=== PATIENT | male | born 1970 | race Caucasian/White ===

== ENCOUNTER 2017-04-11 08:59 | Emergency (ER) | payer OTHER ==
[~2017-04-11] VITALS: Ht 167.6 cm; Wt 89.8 kg
[~2017-04-11 08:59] MED LIST: FLONS; PROAIR HFA0.09 MG/A1 INH; QVAR0.08 MG/Ac IH; SINGULAIR10 MG PO
[2017-04-11 11:18] VITALS: BP 114/78
== END 2017-04-11 11:18 | disposition home or self-care (01) ==
LOC: ED 08:59
DX: J45.901 Unspecified asthma with (acute) exacerbation (principal); Z79.51 Long term (current) use of inhaled steroids
CPT/HCPCS: J1100; J7030; J7620; Q0092

== ENCOUNTER 2017-07-29 09:40 | Emergency (ER) | payer OTHER ==
[~2017-07-29] VITALS: Ht 170.2 cm; Wt 88.7 kg
[2017-07-29 12:04] VITALS: BP 138/88
== END 2017-07-29 12:05 | disposition home or self-care (01) ==
LOC: ED 09:40
DX: J45.901 Unspecified asthma with (acute) exacerbation (principal); Z79.899 Other long term (current) drug therapy
CPT/HCPCS: J2930; J7613; J7644

== ENCOUNTER 2018-03-03 08:55 | Emergency (ER) | payer OTHER ==
[~2018-03-03] VITALS: Ht 167.6 cm; Wt 88.9 kg
[2018-03-03 08:57] VITALS: Ht 167.6 cm; Wt 88.9 kg
[2018-03-03 09:30] LABS: BASOPHIL % 0.4 % (0-2); PLATELET COUNT 244 x10^3mcL (130-400); RED CELL DISTRIBUTION WIDTH 14.5 % (11.5-14.5)
[2018-03-03 09:55] LABS: CALCIUM 9.3 mg/dL (8.5-10.1); CHLORIDE SERUM 103 mmol/L (98-107); GFR1 > 60 mL/min; GLUCOSE SERUM 130 mg/dL (74-106); POTASSIUM SERUM 4.8 mmol/L (3.5-5.1); SODIUM SERUM 141 mmol/L (136-145)
[2018-03-03 09:58] LABS: ALBUMIN 3.6 g/dL (3.4-5.0); ALKALINE PHOSPHATASE 60 U/L (46-116); ALT/SGPT 22 U/L (16-63); AST/SGOT 12 U/L (15-37); BILIRUBIN TOTAL 0.24 mg/dL (0.20-1.00); TOTAL PROTEIN, SERUM 7.2 g/dL (6.4-8.2)
[2018-03-03 11:49] VITALS: BP 117/75
== END 2018-03-03 11:49 | disposition home or self-care (01) ==
LOC: ED 08:55
PROVIDERS: Emergency Medicine
DX: J45.901 Unspecified asthma with (acute) exacerbation (principal)
CPT/HCPCS: 83880; 94150; J2930; J3475; J7030; J7613; Q0092

== ENCOUNTER → 2018-05-20 | Outpatient (CLI) | payer OTHER ==
[2018-05-20 09:53] LABS: BASOPHIL % 0.4 % (0-2); PLATELET COUNT 242 x10^3mcL (130-400)
[2018-05-20 10:35] LABS: ALBUMIN 3.6 g/dL (3.4-5.0); ALKALINE PHOSPHATASE 73 U/L (46-116); ALT/SGPT 30 U/L (16-63); AST/SGOT 18 U/L (15-37); BILIRUBIN TOTAL 0.3 mg/dL (0.20-1.00); CALCIUM 8.5 mg/dL (8.5-10.1); CARBON DIOXIDE 30.6 mmol/L (21-32); CHLORIDE SERUM 104 mmol/L (98-107); GFR1 > 60 mL/min; GLUCOSE SERUM 94 mg/dL (74-106); HDL CHOLESTEROL 44 mg/dL (40-60); POTASSIUM SERUM 3.6 mmol/L (3.5-5.1); SODIUM SERUM 141 mmol/L (136-145); TOTAL PROTEIN, SERUM 7.1 g/dL (6.4-8.2); TRIGLYCERIDES 148 mg/dL (<150)
[2018-05-20 10:44] LABS: CHOLESTEROL 238 mg/dL (<200); CHOLESTEROL/HDL RATIO 5.4; T4(THYROXINE) 4.1 ug/dL (4.7-13.3)
== END | disposition home or self-care (01) ==
LOC: LB 09:02
PROVIDERS: Pediatrics
DX: Z00.00 Encounter for general adult medical examination without abnormal findings (principal); J45.40 Moderate persistent asthma, uncomplicated; E66.9 Obesity, unspecified; Z68.30 Body mass index [BMI] 30.0-30.9, adult
CPT/HCPCS: 84439

== ENCOUNTER → 2018-06-08 | Outpatient (CLI) | payer OTHER ==
[2018-06-08 11:12] LABS: FREE T4 0.73 ng/dL (0.76-1.46)
== END | disposition home or self-care (01) ==
LOC: LB 10:25
PROVIDERS: Pediatrics
DX: R94.6 Abnormal results of thyroid function studies (principal)
CPT/HCPCS: 84439

== ENCOUNTER 2018-07-28 13:04 | Emergency (ER) | payer OTHER ==
[~2018-07-28] VITALS: Ht 167.6 cm; Wt 91.6 kg
[2018-07-28 13:10] VITALS: Ht 167.6 cm; Wt 91.6 kg
[2018-07-28 14:34] LABS: CALCIUM 8.1 mg/dL (8.5-10.1); CARBON DIOXIDE 27.7 mmol/L (21-32); CHLORIDE SERUM 111 mmol/L (98-107); GFR1 > 60 mL/min; GLUCOSE SERUM 109 mg/dL (74-106); POTASSIUM SERUM 3.7 mmol/L (3.5-5.1); SODIUM SERUM 147 mmol/L (136-145)
[2018-07-28 14:36] LABS: BASOPHIL % 0.6 % (0-2); PLATELET COUNT 212 x10^3mcL (130-400); RED CELL DISTRIBUTION WIDTH 14.1 % (11.5-14.5)
[2018-07-28 14:38] LABS: ALBUMIN 3.4 g/dL (3.4-5.0); ALKALINE PHOSPHATASE 60 U/L (46-116); ALT/SGPT 23 U/L (16-63); AST/SGOT 19 U/L (15-37); BILIRUBIN TOTAL 0.21 mg/dL (0.20-1.00); CHOLESTEROL 181 mg/dL (<200); LIPASE 130 IU/L (73-393); TOTAL PROTEIN, SERUM 6.5 g/dL (6.4-8.2); TRIGLYCERIDES 167 mg/dL (<150)
[2018-07-28 14:40] LABS: HDL CHOLESTEROL 30 mg/dL (40-60)
[2018-07-28 15:43] LABS: FREE T4 0.76 ng/dL (0.76-1.46); FREE THYROXINE INDEX 1.6 ug/dL (1.4-4.5); T4(THYROXINE) 4.7 ug/dL (4.7-13.3)
[2018-07-28 15:52] VITALS: BP 130/84
[2018-07-28 15:56] LABS: PHOSPHOROUS 2.7 mg/dL (2.5-4.9)
[2018-07-28 16:07] LABS: T3 TOTAL 1.22 ng/mL
== END 2018-07-28 15:52 | disposition left against medical advice (07) ==
LOC: ED 13:04
PROVIDERS: Internal Medicine; Specialist
DX: T18.128A Food in esophagus causing other injury, initial encounter (principal); J45.909 Unspecified asthma, uncomplicated; X58.XXXA Exposure to other specified factors, initial encounter; Y93.89 Activity, other specified; Y92.89 Other specified places as the place of occurrence of the external cause; Y99.8 Other external cause status
CPT/HCPCS: 83880; 84439; J1610; J2405; J7030; Q0092; Q0162

== ENCOUNTER 2018-08-15 02:59 | Emergency (ER) | payer OTHER ==
[~2018-08-15] VITALS: Ht 170.2 cm; Wt 94.9 kg
[2018-08-15 07:26] VITALS: BP 111/87
== END 2018-08-15 07:25 | disposition home or self-care (01) ==
LOC: ED 02:59
DX: J45.901 Unspecified asthma with (acute) exacerbation (principal)
CPT/HCPCS: J7512; J7620

== ENCOUNTER 2018-09-19 20:54 | Emergency (ER) | payer OTHER ==
[2018-09-19 23:22] VITALS: BP 135/81
== END 2018-09-19 23:22 | disposition home or self-care (01) ==
LOC: ED 20:54
DX: J20.9 Acute bronchitis, unspecified (principal); J45.901 Unspecified asthma with (acute) exacerbation
CPT/HCPCS: J7613; J7620; J7644

== ENCOUNTER 2018-09-20 09:06 | Emergency (ER) | payer OTHER ==
[~2018-09-20] VITALS: Ht 170.2 cm; Wt 94.8 kg
[2018-09-20 09:08] VITALS: Ht 170.2 cm; Wt 94.8 kg
[2018-09-20 10:24] LABS: CALCIUM 8.8 mg/dL (8.5-10.1); CARBON DIOXIDE 24.5 mmol/L (21-32); CHLORIDE SERUM 103 mmol/L (98-107); CREATININE SERUM 0.9 mg/dL (0.7-1.3); GFR1 > 60 mL/min; GLUCOSE SERUM 112 mg/dL (74-106); POTASSIUM SERUM 3.5 mmol/L (3.5-5.1); SODIUM SERUM 138 mmol/L (136-145)
[2018-09-20 10:29] LABS: ALBUMIN 3.4 g/dL (3.4-5.0); ALKALINE PHOSPHATASE 70 U/L (46-116); ALT/SGPT 25 U/L (16-63); AST/SGOT 13 U/L (15-37); BILIRUBIN TOTAL 0.1 mg/dL (0.20-1.00); TOTAL PROTEIN, SERUM 7.4 g/dL (6.4-8.2)
[2018-09-20 11:06] LABS: PLATELET COUNT 255 x10^3mcL (130-400); RED CELL DISTRIBUTION WIDTH 13.3 % (11.5-14.5)
[2018-09-20 11:30] LABS: ATYPICAL LYMPH 1 %; BAND NEUTROPHIL 3 % (0-10); BASOPHIL 0 % (0-2); MONOCYTE 7 % (0-7); SEGMENTED NEUTROPHILS 86 % (37-75); rbc morphology (normal/abnorm) ABNORMAL (NORMAL)
[2018-09-20 11:31] LABS: PLATELET MORPHOLOGY PLATELETS NORMAL
[2018-09-20 12:09] VITALS: BP 123/74
== END 2018-09-20 12:09 | disposition home or self-care (01) ==
LOC: ED 09:06
PROVIDERS: Emergency Medicine
DX: J45.901 Unspecified asthma with (acute) exacerbation (principal)
CPT/HCPCS: 83880; 94150; J2930; J3475; J7030; J7040; J7613; J7644

== ENCOUNTER 2019-08-16 02:39 | Inpatient (IN) | payer OTHER ==
[~2019-08-16] VITALS: Ht 167.6 cm; Wt 99.4 kg
[2019-08-16 02:45] VITALS: Ht 167.6 cm; Wt 99.4 kg
--- NOTE | 2019-08-16 02:49 | NUR ---
PT PRESENTS TO ED WITH [facility] FROM HOME FOR C/O SOB/ASTHMA EXACERBATION. PT STATES THAT HE JUST RETURNED THIS EVENING FROM [facility] [employer] [facility] AND HAS FELT INCREASINGLY SOB. PT STATES THAT HE HAS BEEN INTUBATED FOR ASTHMA EXACERBATIONS 7 TIMES IN THE PAST. PT STATES HE HASA LOT OF SINUS PRESSURE AND A CONGESTED COUGH WITH YELLOW PHLEGM. PER PT WHEN HE COUGHS HIS HEAD PAIN IS REALLY BAD IN THE FRONTAL LOBE. PT IS SPEAKING IN CLEAR AND FULL SENTENCES AND HAS AUDIBLE CONGESTED COUGH. PT ALSO HAS EXPIRATORY WHEEZING IN BL BASES WELL UPPER LOBES OF BOTH FRONT AND BACK. PT CURRENTLY HAS BREATHING TX IN PLACE FROM [facility]. PT SATURATION AT100% WITH TX IN PLACE. AWAITING MSE AT THIS TIME. PT CONNECTED TO PULSE OX MONITORS. PT CURTAIN OPEN TO THE NURSES STATION AT THIS TIME
--- NOTE | 2019-08-16 02:53 | NUR ---
PER [facility] PT WAS SATURATING AT 96% ON RA ON ARRIVAL
[2019-08-16 03:32] LABS: BASOPHIL % 0.3 % (0-2); PLATELET COUNT 226 x10^3mcL (130-400); RED CELL DISTRIBUTION WIDTH 14.2 % (11.5-14.5)
[2019-08-16 03:59] LABS: CALCIUM 8.3 mg/dL (8.5-10.1); CARBON DIOXIDE 29.9 mmol/L (21-32); CHLORIDE SERUM 104 mmol/L (98-107); CREATININE SERUM 1.1 mg/dL (0.7-1.3); GFR1 > 60 mL/min; GLUCOSE SERUM 106 mg/dL (74-106); POTASSIUM SERUM 4.1 mmol/L (3.5-5.1); SODIUM SERUM 143 mmol/L (136-145)
[2019-08-16 04:03] LABS: ALBUMIN 3.5 g/dL (3.4-5.0); ALKALINE PHOSPHATASE 72 U/L (46-116); ALT/SGPT 55 U/L (16-63); AST/SGOT 32 U/L (15-37); BILIRUBIN TOTAL 0.2 mg/dL (0.20-1.00); HDL CHOLESTEROL 46 mg/dL (40-60); TOTAL PROTEIN, SERUM 7.4 g/dL (6.4-8.2)
[2019-08-16 04:11] LABS: CHOLESTEROL 248 mg/dL (<200)
--- NOTE | 2019-08-16 04:55 | NUR ---
PT ON PULSE OX MONITOR AND NOTED TO BE SLEEPING WITH AUDIBLE SNORING. PT HAD SEVERAL EPISODES OF DESATURATION INTO THE MID TO HIGH 80S. MD APARICIO MADE AWARE. WHEN YOU SPOKE TO PT AND WOKE HIM UP SATURATIONS BEGAN TO RETURN TO NORMAL BASELINE
[2019-08-16 05:38] LABS: MAGNESIUM 2.1 mg/dL (1.8-2.4)
[2019-08-16 05:47] LABS: CHOLESTEROL/HDL RATIO 5.3
[2019-08-16 06:10] VITALS: BP 121/61
--- NOTE | 2019-08-16 07:05 | NUR ---
REPORT GIVEN TO RAUL PAIGE TO RESUME CARE OF PT
--- NOTE | 2019-08-16 07:20 | NUR ---
RECEIVED PATIENT IN BED, SLEEPING, BUT EASILY AROUSABLE. PATIENT DOES NOT SEEM TO BE IN ANY DISTRESS AT THIS TIME. PATIENT SNORING. SR ON THE MONITOR, HR = 95. LUNGS - EXPIRATORY WHEEZING ON ALL RAMOS. BS PRESENT X 4 QUADRANTS. IVF INFUSING ON LEFT HAND NS @ 200ML/HR. WILL CONTINUE TO MONITOR//APR RN
--- NOTE | 2019-08-16 07:38 | NUR ---
REPORT CALLED AND GIVEN TO SHAR RN EXT [phone] FOR ADMISSION TO ROOM 253B.//APR RN
--- NOTE | 2019-08-16 08:00 | NUR ---
ADMITTED PT FROM ED WITH DX OF ASTHAMA EXACERBATION. PT IS A/OX4 SLEEPY BUT ARROUSABLE. RESP EVEN AND UNLABORED WHILE AWAKE WITH AUDIBLE EXPIRATORY WHEEZING. ON RA SATING 98%. WITH CONGESTED COUGH. PT PLACED ON TELE #17 SHOWING NSR. DENIES ANY CP/PRESSURE AT THIS TIME. NO EDEMA NOTED. IV TO LH WITH IVF INFUSING. ABD SOFT, NONTENDER WITH ACTIVE BSX4. DENIES ANY N/V AT THIS TIME. VOIDING FREELY AND AMBULATORY. CALL LIGHT IN REACH NEEDS ATTENDED TO.
[2019-08-16 08:05] VITALS: BP 114/76
--- NOTE | 2019-08-16 11:30 | NUR ---
DR. LARA HAD EVALUATED PT AND RECEIVED ORDER TO CHANGE FREQUENCY OF [place] CURRENTLY ORDERED FROM Q4HP TO Q2HP WITH SAME CRITERIA SOB, WHEEZING.
--- NOTE | 2019-08-16 12:40 | NUR ---
PT RESTING AT TIME. DENIES ANY DISCOMFORT. CALL LIGHT IN REACH NEEDS ATTENDED TO.
[2019-08-16 13:08] VITALS: BP 116/74
--- NOTE | 2019-08-16 14:39 | NUR ---
PT RESTING AT THIS TIME. S/P HHN TX. PT ASSISTED TO BR AND TOLERATED ACTIVITY WELL. DENIES ANY SOB. REPORTS IMPROVEMENT WITH TIGHTNESS/CONGESTION TO UPPER AIRWAY. CALL LIGHT IN REACH NEEDS ATTENDED TO.
[2019-08-16 17:40] VITALS: BP 114/73
--- NOTE | 2019-08-16 18:28 | NUR ---
PT RESTING AT THIS TIME. DENIES ANY DISCOMFORT. REMAINS ON RA SATING 96%. WITH CONGESTED COUGH. PT REPORTS IMPROVEMENT WITH SOB AND WHEEZING. CALL LIGHT IN REACH NEEDS ATTENDED TO.
--- NOTE | 2019-08-16 19:57 | NUR ---
PT CURRENTLY RESTING IN BED, NO ACUTE DISTRESS. A/O X4. TELE #17 SHOWING SINUS RHYTHM, NO ACUTE DISTRESS. PULSES PALPABLE IN ALL EXTREMITIES, NO EDEMA NOTED. LUNG SOUNDS EXPIRATORY WHEEZING BILATERALLY, C/O SOB, RT NOTIFIED FOR TREATMENT. BOWEL SOUNDS ACTIVE, LAST BM 08/15/19. VOIDING WELL. AMBULATORY. SKIN INTACT. IV PATENT AND INTACT. BED IN LOWEST POSITION, SIDE RAILS UP X2, CALL LIGHT WITHIN REACH. WILL CONTINUE TO MONITOR.
[2019-08-16 20:18] VITALS: BP 136/63
--- NOTE | 2019-08-17 00:18 | NUR ---
PT CURRENTLY RESTING IN BED, NO ACUTE DISTRESS. WILL CONTINUE TO MONITOR.
[2019-08-17 05:34] VITALS: BP 118/71
--- NOTE | 2019-08-17 06:13 | NUR ---
PT SLEPT PERIODICALLY THROUGHOUT NIGHT, NO ACUTE DISTRESS. ALL NEEDS MET AND ATTENDED TO. NO SIGNIFICANT CHANGES. IV PATENT AND INTACT. BED IN LOWEST POSITION, SIDE RAILS UP X2, CALL LIGHT WITHIN REACH. WILL ENDORSE CARE TO ONCOMING NURSE.
[2019-08-17 06:21] LABS: PLATELET COUNT 224 x10^3mcL (130-400)
[2019-08-17 06:28] LABS: BASOPHIL % 0 % (0-2); RED CELL DISTRIBUTION WIDTH 15.1 % (11.5-14.5)
[2019-08-17 06:33] LABS: CALCIUM 8.4 mg/dL (8.5-10.1); CARBON DIOXIDE 25.4 mmol/L (21-32); CHLORIDE SERUM 105 mmol/L (98-107); CREATININE SERUM 0.9 mg/dL (0.7-1.3); GFR1 > 60 mL/min; GLUCOSE SERUM 144 mg/dL (74-106); POTASSIUM SERUM 4.3 mmol/L (3.5-5.1); SODIUM SERUM 142 mmol/L (136-145)
--- NOTE | 2019-08-17 07:10 | NUR ---
RECEIVED REPORT FROM SHAREE PAIGE, PT IN BED IN NO ACUTE DISTRESS
--- NOTE | 2019-08-17 07:24 | NUR ---
PT IN BED, IN NO ACUTE DISTRESS, DENIED CP/PALPITATION/NAVARRETE, DENIED N/D, VERBAL, MOLD[place]/KYRGYZ, ABLE TO MAKE NEEDS KNOWN, AXOX4, NO FACIAL DROOP/SLURRED SPEECH, RESP EVEN, NO SOB/COUGH, RA, LUNG CTA, WHEEZING EXPIRATORY, 97%, CHEST RISE SYMMETRIACLLY, TELE #17, NSR, ABD SOFT AND NON-TENDER TO TOUCH, BS ACTIVE X 4, AMBULATORY, CONTINENT, PALP PULSES, CAP REFILL < 3S, IV PATENT AND INFUSING WELL, DRESSIGN CDI, SEE SKIN ASSESSMENT, ALL NEEDS ADDRESSED AT THIS TIME, SAFETY PROTOCOL FOLLOWED, CONTINUE TO MONITOR
[2019-08-17 08:37] VITALS: BP 108/64
--- NOTE | 2019-08-17 08:46 | NUR ---
AM MED GIVEN PER MD ORDER VIA EMAR, TOLERATED WELL, NO ASE NOTED AT THIS TIME, EDUCATION R/T SAFETY, MED AND ASE GIVEN TO PT, VERBALLY UNDERSTANDING, ALL NEEDS ADDRESSED AT THIS TIME, CONTINUE TO MONITOR
--- NOTE | 2019-08-17 09:36 | NUR ---
PT MADE AWARE OF UA, UDS URINE SAMPLE FOR LAB PER MD ORDER, SAID WILL NOTIFY NURSING STAFFS WHEN URINE AVAILABLE, CONTINUE TO MONITOR
--- NOTE | 2019-08-17 10:33 | NUR ---
PT IN BED, IN NO ACUTE DISTRESS, PER PT, PT HAS NEB MACHINE AT HOME AND USES THE DEVICE DAILY FOR BREATHING TX PER PCP ORDER, CHARGE NURSE FABRIZIO AND SS MADE AWARE
--- NOTE | 2019-08-17 11:04 | NUR ---
URINE COLLECTED FOR UA, UDS IORDER, SENT TO LAB PER MD ORDER
[2019-08-17 12:19] VITALS: BP 108/62
--- NOTE | 2019-08-17 13:25 | NUR ---
PT RESTING IN BED, IN NO ACUTE DISTRESS, BM X 1, LARGE, SOFT PER PT REPORTED, STAYED IN BED, CONTINUE TO MONITOR
--- NOTE | 2019-08-17 13:56 | NUR ---
PT TRANSFERRED TO [facility] PER MD ORDER, TELE #17 REMOVED AND GAVE TO YOGI CARRILLO, PT SLEEPING IN BED, IN NO ACUTE DISTRESS, RESP EVEN, NO SOB/WHEEZING AT THIS TIME, CHEST RISE SYMMETRICALLY, DENIED CP/PALPITATION/NAVARRETE, CONTINUE TO MONITOR
[2019-08-17 15:16] LABS: microscopic required? NO
[2019-08-17 15:45] LABS: UA SPECIFIC GRAVITY 1.015 (1.005-1.035); urine erythrocyte NEGATIVE (NEGATIVE)
[2019-08-17 15:55] LABS: AMPHETAMINE QUAL UR NONE DETECTED (See below)
[2019-08-17 16:22] VITALS: BP 144/83
--- NOTE | 2019-08-17 17:37 | NUR ---
PT IN BED, VERBAL, ABLE TO MAKE NEEDS KNOWN, AXOX4, DENIED CP/PALPITATION, NO SOB/COUGH, CHEST RISE SYMMETRICALLY, NO SLUURED CPEECH/DROOP FACE, IV PATENT AND INFUSING WELL, DRESSING CDI, MEDSURG, PALP PULSES, CAP REFIL < 3S, PT IN NO ACUTE DISTRESS, ALL NEEDS ADDRESSED AT THIS TIME, WILL ENDORSE TO ONCOMING RN
--- NOTE | 2019-08-17 17:57 | NUR ---
PT REMOVED IV TO LEFT ARM, IV CATH INTACT, NO ACTIVE BLEEDING NOTED AT THIS TIME, PT SAID THE IV INCONVENIENT FOR HIM WHILE EATING, PT IN NO ACUTE DISTRESS, CHARGE NURSE FABRIZIO MADE AWARE
--- NOTE | 2019-08-17 19:10 | NUR ---
REPORT RECEIVED FROM DAY SHIFT RN. PATIENT WAS SEEN AND IS RESTING COMFORTABLY IN BED. NO DISTRESS NOTED. BREATHING EVEN AND UNLABORED ON ROOM AIR. NO SOB OR RESP DISTRESS NOTED. EXP WHEEZES HEARD BILATERALLY. DENIES CHEST PAIN/PRESSURE. NO C/O PAIN. IV TO THE RFA INFUSING WELL. PATENT AND INTACT. NO REDNESS OR SWELLING NOTED. COMFORT AND AFETY MEASURES IN PLACE. BED IS LOCKED AND IN THE LOWEST POSITION. SIDE RAILS UP X2. CALL LIGHT IS WITHIN REACH. WILL CONTINUE TO MONITOR.
[2019-08-17 20:25] VITALS: BP 133/83
--- NOTE | 2019-08-17 21:35 | NUR ---
C/O HEARTBURN AND REQUESTING TUMS. PAGE GATED DR SHAH. AWAITING ORDER.
--- NOTE | 2019-08-17 21:51 | NUR ---
ADMINISTERED PRN TUMS FOR HEARTBURN. NO DISTRESS NOTED. MEDICATION EDUCATION GIVEN. BREATHING EVEN AND UNLABORED. IVF INFUSING WELL. SAFETY MEASURES IN PLACE. CALL LIGHT IS WITHIN REACH. WILL CONTINUE TO MONITOR.
--- NOTE | 2019-08-18 00:12 | NUR ---
RESTING IN BED WITH EYES CLOSED. NO DISTRESS NOTED. BREATHING EVEN AND UNLABORED ON ROOM AIR. NO SOB OR RESP DISTRESS NOTED. IVF INFUSING WELL. PATENT AND INTACT. SAFETY MEASURES IN PLACE. CALL LIGHT IS WITHIN REACH. WILL CONTINUE TO MONITOR.
--- NOTE | 2019-08-18 01:45 | NUR ---
PATIENT REQUESTING BREATHING TX. RT CALLED.
--- NOTE | 2019-08-18 01:54 | NUR ---
RT IN W/ PATIENT FOR BREATHING TX.
--- NOTE | 2019-08-18 02:35 | NUR ---
RESTING IN BED WITH EYES CLOSED. NO DISTRESS NOTED. BREATHING EVEN AND UNALBORED. IVF INFUSING WELL. SAFETY MEASURES IN PLACE. CALL LIGHT IS WITHIN REACH. WILL CONTINUE TO MONITOR.
--- NOTE | 2019-08-18 03:40 | NUR ---
CALLED REQUESTING BREATHING TX. RT CALLED.
[2019-08-18 04:58] VITALS: BP 109/68
--- NOTE | 2019-08-18 05:52 | NUR ---
RESTED IN LONG INTERVALS THROUGHOUT THE NIGHT. NO ACUTE CHANGES NOTED. BREATHING EVEN AND UNLABORED. NO SOB OR RESP DISTRESS NOTED. DENIES CHEST PAIN/PRESSURE. NO C/O PAIN THROUGHOUT THE NIGHT. IV RFA INFUSING WELL. PATENT AND INTACT. NO REDNESS OR SWELLING NOTED. RECEIVED BREATHING TX THROUGHOUT THE NIGHT. EXP WHEEZES HEARD BILATERALLY. COMFORT AND SAFETY MEASURES IN PLACE. CALL LIGHT IS WITHIN REACH. WILL ENDORSE CARE TO DAY SHIFT RN.
[2019-08-18 06:39] LABS: PLATELET COUNT 235 x10^3mcL (130-400)
[2019-08-18 06:42] LABS: CALCIUM 7.9 mg/dL (8.5-10.1); CARBON DIOXIDE 26.9 mmol/L (21-32); CHLORIDE SERUM 106 mmol/L (98-107); CREATININE SERUM 0.9 mg/dL (0.7-1.3); GFR1 > 60 mL/min; GLUCOSE SERUM 134 mg/dL (74-106); POTASSIUM SERUM 4.2 mmol/L (3.5-5.1); SODIUM SERUM 142 mmol/L (136-145)
[2019-08-18 06:43] LABS: BASOPHIL % 0 % (0-2); RED CELL DISTRIBUTION WIDTH 14.8 % (11.5-14.5)
--- NOTE | 2019-08-18 07:46 | NUR ---
RECEIVED REPORT FROM RADHA PAIGE, PT IN BED IN NO ACUTE DISTRESS
--- NOTE | 2019-08-18 07:59 | NUR ---
PT IN CHAIR, IN NO ACUTE DISTRESS, DENIED CP/PALPITATION/NAVARRETE, DENIED N/D, VERBAL, VIETNAMESE/BRITISH, ABLE TO MAKE NEEDS KNOWN, AXOX4, NO FACIAL DROOP/SLURRED SPEECH, RESP EVEN, NO SOB/COUGH, RA, LUNG CTA, WHEEZING EXPIRATORY, 96%, CHEST RISE SYMMETRIACLLY, MEDSURG, ABD SOFT AND NON-TENDER TO TOUCH, BS ACTIVE X 4, BM THIS EARLY AM, MEDIUM, SOFT PER PT, AMBULATORY, CONTINENT, PALP PULSES, CAP REFILL < 3S, IV PATENT AND INFUSING WELL, DRESSIGN CDI, SEE SKIN ASSESSMENT, ALL NEEDS ADDRESSED AT THIS TIME, SAFETY PROTOCOL FOLLOWED, CONTINUE TO MONITOR
[2019-08-18 08:27] VITALS: BP 126/87
--- NOTE | 2019-08-18 09:00 | NUR ---
AM MED GIVEN PER MD ORDER VIA EMAR, TOLERATED WELL, NO ASE NTOED AT THIS TIME, EDUACTION R/T MED, CONDITION AND ASE GIVEN TO PT, VERBALLY UNDERSTANDING, ALL NEEDS ADDRESSED AT THIS TIME, CONTINUE TO MONITOR
--- NOTE | 2019-08-18 11:39 | NUR ---
PT PULLED OUT IV, BLEEDING NOTED, PRESSURE APPLIED, BLEEDING STOPPED, BANDAID APPLIED, PT STATED HE WANT TO LEAVE AMA AND FAMILY WILL P/U PT AT 1230, PT MADE AWARE OF RISK OF LEAVING AMA W/ CURRENT DIAGNOSIS AND PHYSICAL CONDITION, VERBALLY UNDERSTANDING, STILL DECIDE TO LEAVE AMA, FORMING PROCESS WORKER ASHOK PEREZ AND CHARGE NURSE FABRIZIO MADE AWARE
--- NOTE | 2019-08-18 11:47 | NUR ---
MARKET DEVELOPMENT DIRECTOR ASHOK PEREZ TALKED TO PT, PT SIGNED AMA, KEPT IN CHART, PT LEAVE HOSPITAL IN NO ACUTE DISTRESS, NURSING STAFFS ASSISTED PT TO LOBBY VIA WC, PT P/U BY FAMILY TO HOME
== END 2019-08-18 11:51 | disposition left against medical advice (07) | DRG 193 ==
LOC: ED 02:39 → DU 05:09 → MU 08-17 13:56
PROVIDERS: Emergency Medicine; ADMIT Internal Medicine
DX: J18.9 Pneumonia, unspecified organism (principal); J96.01 Acute respiratory failure with hypoxia; J45.901 Unspecified asthma with (acute) exacerbation; Z68.35 Body mass index [BMI] 35.0-35.9, adult; Z53.29 Procedure and treatment not carried out because of patient's decision for other reasons
CPT/HCPCS: 36600; 83880; 90732; 94150; G0378; J0456; J0696; J2270; J2920; J2930; J3010; J7030; J7060; J7620; Q0092